=== PATIENT | female | born 1960 | race Caucasian/White ===

== ENCOUNTER → 2016-08-05 | Outpatient (CLI) | payer MEDICARE ==
[~2016-08-05] MED LIST: ALPR-229 PO; DULO60CA PO; GABA-339 PO; OXY20CRT PO; QUET400T PO
[2016-08-05 11:03] LABS: Cholesterol 326 mg/dL (<200); HDL Cholesterol 92 mg/dL (40-59); LDL Cholesterol 204 mg/dL (<100); Triglycerides 214 mg/dL (<150)
== END | disposition home or self-care (01) ==
LOC: LAB 10:05
PROVIDERS: ATTEND Internal Medicine
DX: Z00.00 Encounter for general adult medical examination without abnormal findings (principal); E55.9 Vitamin D deficiency, unspecified
CPT/HCPCS: 36415; 80061; 82306; 84443

== ENCOUNTER 2022-03-01 13:40 | Emergency (ER) | payer MEDICARE ==
[~2022-03-01] VITALS: Ht 172.7 cm; Wt 79.5 kg
[~2022-03-01 13:40] MED LIST changes: -ALPR-229 PO; +ALPR2TAB6 PO
[2022-03-01 14:00] VITALS: BP 155/83
[2022-03-01 14:30] LABS: Basophils # (auto) 0 10 ^3/uL (0-0.2); Basophils % (auto) 0.6 % (0.0-2.0); Eosinophils # (auto) 0 10 ^3/uL (0-0.8); Eosinophils % (auto) 0.5 % (0.0-7.0); Hematocrit 35.4 % (36.0-46.0); Hemoglobin 11.2 g/dL (12.2-16.2); Lymphocytes # (auto) 1.2 10 ^3/uL (0.4-5.4); Lymphocytes % (auto) 20.6 % (10.0-50.0); Mean Corpuscular Hemoglobin 27.1 pg (28.0-32.0); Mean Corpuscular Hgb Conc. 31.8 g/dL (32.0-36.0); Mean Corpuscular Volume 85.4 fL (80.0-100.0); Monocytes # (auto) 0.3 10 ^3/uL (0-1.3); Monocytes % (auto) 5.7 % (0.0-12.0); Neutrophils # (auto) 4.3 10 ^3/uL (1.6-8.6); Neutrophils % (auto) 72.6 % (37.0-80.0); Red Blood Cells 4.14 10^6/uL (4.0-5.20); Red Cell Distribution Width 13.5 % (11.8-14.3); White Blood Cell 5.9 10^3/uL (4.4-10.8)
[2022-03-01 14:44] LABS: Albumin 3.4 g/dL (3.4-5.0); Magnesium 2.2 mg/dL (1.6-2.6); Potassium 3.4 mmol/L (3.5-5.1)
[2022-03-01 14:48] LABS: BUN/Creatinine Ratio 10.9; Bilirubin, Total 0.7 mg/dL (0.2-1.0)
[2022-03-01 14:54] LABS: INR 0.94 (0.9-1.15); Partial Thromboplastin Time 27.1 sec (24.6-33.4)
== END 2022-03-01 16:55 | disposition left against medical advice (07) ==
LOC: ER 13:40
DX: R07.9 Chest pain, unspecified (principal); Z53.21 Procedure and treatment not carried out due to patient leaving prior to being seen by health care provider
CPT/HCPCS: 36415; 80053; 83735; 83880; 84443; 84484; 85025; 85379; 85610; 85730

== ENCOUNTER 2024-07-11 08:54 | Inpatient (IN) | payer MEDICARE ==
[~2024-07-11] VITALS: Ht 170.2 cm; Wt 92.0 kg
[~2024-07-11 08:54] MED LIST changes: -DULO60CA PO; +DULO60CA41 PO
[2024-07-11 09:41] VITALS: RESP 22; O2SAT 99
--- NOTE | 2024-07-11 09:42 | ED.PDOC ---
History of Present Illness HPI Comments 63 y/o F, with a Hx of COPD w/3LPM home O2 use and former tobacco use, presents with c/o shortness of breath, productive cough, congestion, and chest pain, today. Patient endorses on noticing her SpO2 in the 70's in addition to having chest pain whenever she coughs or deeply inhales or exhales, this morning. She reports no recent sick contact, travel, or any additional relevant or pertinent Hx. She denies having any palpitations, hemoptysis, dizziness, fever, chills, nausea, vomiting, or other associated symptoms or modifiers at this time. Chief Complaint: Shortness of Breath Time Seen by MD: 09:05 Primary Care Provider: MAYRA Camarena Notes: Nurses Notes, Medications, Allergies Allergies: Coded Allergies: Penicillins (Verified Allergy, Unknown, 03/01/22) Home Meds Reported Medications Quetiapine Fumerate (Seroquel) 400 Mg Tab, 400 MG PO HS, TAB 12/28/15 Duloxetine Hcl (Cymbalta) 60 Mg Cap, 60 MG PO DAILY, CAP 12/28/15 Gabapentin (Gabapentin) 600 Mg Tab, 600 MG PO TID, TAB 12/28/15 Oxycodone Hcl (OxyCONTIN ER Tablet) 20 Mg Tb, 30 MG PO BID for 30 Days 12/28/15 Alprazolam (Alprazolam) 2 Mg Tab, 2 MG PO TID, TAB 12/28/15 Information Source: Patient Mode of Arrival: Ambulatory Severity: Moderate Timing: Hours Duration: Since onset Prehospital treatment: None Past Medical History PAST MEDICAL HISTORY: COPD (w/home O2), Thyroid Surgical History: Appendectomy, , Hysterectomy Surgical History (Other): breast augementation DRAPERY WORKER History: No Pertinent DRAPERY WORKER History Family History Family History: Unobtainable Social History Smoker: Quit Greater Than 1 Year, Cigarettes Alcohol: Denies ETOH Use Drugs: Marijuana Lives In: Home EENTM: reports: others (congestion ) Respiratory: reports: cough, shortness of breath Cardiovascular: reports: chest pain All Other Systems: Reviewed and Negative (negative unless otherwise stated above or in HPI) Physical Exam General Appearance: Moderate Distress HEENT: Normal ENT Inspection, Pharynx Normal, TMs Normal Neck: Full Range of Motion, Non-Tender, Normal, Normal Inspection Respiratory: Respiratory Distress, Wheezing Cardiovascular: Tachycardia Breast Exam: Deferred Gastrointestinal: No Organomegaly, Non Tender, No Pulsatile Mass, Normal Bowel Sounds, Soft Genitalia: Deferred Pelvic: Deferred Rectal: Deferred Extremities: No calf tenderness, Normal capillary refill, Normal inspection, Normal range of motion, Non-tender, No pedal edema Musculoskeletal : Apperance: Normal Neurologic: Alert Cerebellar Function: NOT DONE Reflexes: NOT DONE Skin: Dry, Normal Color, Warm Peripheral Pulses: 3+ Radial (R), 3+ Radial (L) Lymphatic: No Adenopathy Was a procedure done? Was a procedure done?: No Differential Dx Considerations may include: COPD exacerbation, PNA, URI, viral syndrome, covid19, ME, PE X-Ray, Labs, Meds, VS Vital Signs Date Time Temp Pulse Resp B/P (MAP) Pulse Ox O2 Delivery O2 Flow Rate FiO2 07/11/24 09:48 18 96 Nasal Cannula* 3 32 07/11/24 09:41 22 99 Nasal Cannula* 3 32 07/11/24 09:01 97 07/11/24 09:00 100.7 108 28 185/78 (113) 92 Lab Test 07/11/24 09:48 Range/Units White Blood Count 5.9 4.4-10.8 10^3/uL Red Blood Count 4.12 4.0-5.20 10^6/uL Hemoglobin 11.4 L 12.2-16.2 g/dL Hematocrit 35.5 L 36.0-46.0 % Mean Corpuscular Volume 86.2 80.0-100.0 fL Mean Corpuscular Hemoglobin 27.8 L 28.0-32.0 pg Mean Corpuscular Hemoglobin Concent 32.2 32.0-36.0 g/dL Red Cell Distribution Width 15.5 H 11.8-14.3 % Platelet Count 228 140-450 10^3/uL Mean Platelet Volume 7.1 6.9-10.8 fL Neutrophils (%) (Auto) 73.8 37.0-80.0 % Lymphocytes (%) (Auto) 12.7 10.0-50.0 % Monocytes (%) (Auto) 11.7 0.0-12.0 % Eosinophils (%) (Auto) 1.5 0.0-7.0 % Basophils (%) (Auto) 0.3 0.0-2.0 % Neutrophils # (Auto) 4.4 1.6-8.6 10 ^3/uL Lymphocytes # (Auto) 0.7 0.4-5.4 10 ^3/uL Monocytes # (Auto) 0.7 0-1.3 10 ^3/uL Eosinophils # (Auto) 0.1 0-0.8 10 ^3/uL Basophils # (Auto) 0 0-0.2 10 ^3/uL Nucleated Red Blood Cells 0.1 % Sodium Level 138 136-145 mmol/L Potassium Level 4.0 3.5-5.1 mmol/L Chloride Level 105 98-107 mmol/L Carbon Dioxide Level 27 20-31 mmol/L Anion Gap 6 5-15 Blood Urea Nitrogen 11 9-23 mg/dL Creatinine 0.93 0.550-1.02 mg/dL Glomerular Filtration Rate Calc 69 >90 mL/min BUN/Creatinine Ratio 11.8 10.0-20.0 Serum Glucose 104 74-106 mg/dL Calcium Level 9.4 8.7-10.4 mg/dL Troponin I High Sensitivity < 3 L </=34 ng/L Current Medications Medications (Trade) Dose Ordered Sig/Ashley Route Start Time Stop Time Status Last Admin Methylprednisolone Sodium Succinate (Solu Medrol) 125 mg ONCE ONCE IV 07/11/24 09:30 07/11/24 09:31 DC 07/11/24 09:46 Albuterol (Ventolin Medneb) 5 mg ONCE ONCE NEB 07/11/24 09:30 12 09:31 DC 07/11/24 09:48 Ipratropium [place] (Atrovent Medneb) 0.5 mg ONCE ONCE NEB 07/11/24 09:30 07/11/24 09:31 DC 07/11/24 09:47 Acetaminophen (Tylenol Tablet) 650 mg ONCE ONCE PO 07/11/24 09:45 07/11/24 09:46 DC 07/11/24 09:47 Patient alert. Complaining of shortness breath. Currently on oxygen. Had to increase the oxygen content. Blood pressure elevated. Mild fever. Establish intravenous access. Was given steroid. Was given breathing treatment. Reviewed her previous visit. Explained to the patient. Continue cardiac monitoring. [address] [address] Ph: [phone] DIAGNOSTIC IMAGING Diagnostic Imaging Report : [id number] Signed PATIENT: LIZETH ESCOBAR ACCT: [id number] UNIT: [id number] : 1960 LOC: ER ROOM / BED: / AGE / SEX: 63 / F ADM STATUS: REG ER SERVICE 5 ORDERING PHYSICIAN: LETY REED MD PROCEDURE(s): CXRP - CHEST PORTABLE REASON: sob ORDER NUMBER(s): [id number], ACCESSION NUMBER(s): [id number] XY CHEST PORTABLE, HISTORY: sob COMPARISON: None None TECHNICAL DATA: 1 view of the chest was obtained. FINDINGS: Lines and tubes: A spinal stimulator is seen. Cardiomediastinal silhouette: normal Pulmonary vasculature: normal Lung expansion: normal Lung airspace: normal Lung interstitium: normal Pleura: normal Pneumothorax: no Bones: Unremarkable Other: no IMPRESSION: No acute intrathoracic abnormality. ATED BY: SULEIMAN BROWN MD DICTATED DATE/TIME: 07/11/24945 SIGNED BY: SULEIMAN BROWN MD SIGNED DATE/TIME: 07/11/24945 CC: Time of 1ST Reevaluation: 09:35 Reevaluation 1ST: Unchanged Patient Education/Counseling: Diagnosis, Treatment Family Education/Counseling: No Family Present Additional Information I reviewed the following notes from patient's past medical encounters: 03/01/22 The following tests were ordered, and results were reviewed by me: BMP, CBC, TROPONIN, UA, CXR I reviewed and agreed with the following test results read by other providers: CXR I discussed treatment and results with medical personnel Departure 1 Departure Time of Disposition: 09:46 Impression: Primary Impression: Acute respiratory failure Qualified Codes: J96.01 - Acute respiratory failure with hypoxia Additional Impression: COPD exacerbation Disposition: ADMITTED INPATIENT Admit to: Med Surg Condition: Guarded Critical Care Note Critical Care Time?: Yes (90 min-critical care time only) Stability Stability form required: No Heart Score Heart Score: Heart Score Response (Comments) Value History Moderate Suspicious 1 EKG Normal 0 Age 45-64 1 Risk Factors 1 or 2 risk factors 1 Troponin Normal limit 0 Total 3 I personally scribed for LETY REED MD ([email or web address]) on 07/11/24 at 09:42. Electronically submitted by Alex Allen ([email or web address]). I personally scribed for LETY REED MD ([email or web address]) on 07/11/24 at 09:53. Electronically submitted by Alex Allen [email or web address]). LETY REED MD Jul 11, 2024 09:42
[2024-07-11] MEDS: methylPREDNISolone SOD SUCC 125 MG/2 ML VL IV ONE (09:46)
[2024-07-11] MEDS: IPRATROPIUM BROM 0.5 MG/2.5ML INH SOL NEB ONE (09:47)
[2024-07-11] MEDS: ACETAMINOPHEN 325 MG TAB PO ONE (09:47)
[2024-07-11] MEDS: ALBUTEROL SULF 2.5 MG/0.5ML(0.5%) NEB SOLN NEB ONE (09:48)
--- NOTE | 2024-07-11 09:48 | DVH ---
XY CHEST PORTABLE, HISTORY: sob COMPARISON: None None TECHNICAL DATA: 1 view of the chest was obtained. FINDINGS: Lines and tubes: A spinal stimulator is seen. Cardiomediastinal silhouette: normal Pulmonary vasculature: normal Lung expansion: normal Lung airspace: normal Lung interstitium: normal Pleura: normal Pneumothorax: no Bones: Unremarkable Other: no IMPRESSION: No acute intrathoracic abnormality.
[2024-07-11 10:09] LABS: Basophils # (auto) 0 10 ^3/uL (0-0.2); Basophils % (auto) 0.3 % (0.0-2.0); Chloride 105 mmol/L (98-107); Eosinophils # (auto) 0.1 10 ^3/uL (0-0.8); Eosinophils % (auto) 1.5 % (0.0-7.0); Hematocrit 35.5 % (36.0-46.0); Hemoglobin 11.4 g/dL (12.2-16.2); Lymphocytes # (auto) 0.7 10 ^3/uL (0.4-5.4); Lymphocytes % (auto) 12.7 % (10.0-50.0); Mean Corpuscular Hemoglobin 27.8 pg (28.0-32.0); Mean Corpuscular Hgb Conc. 32.2 g/dL (32.0-36.0); Mean Corpuscular Volume 86.2 fL (80.0-100.0); Monocytes # (auto) 0.7 10 ^3/uL (0-1.3); Monocytes % (auto) 11.7 % (0.0-12.0); Neutrophils # (auto) 4.4 10 ^3/uL (1.6-8.6); Neutrophils % (auto) 73.8 % (37.0-80.0); Nucleated Red Blood Cells % 0.1 %; Platelet Count (auto) 228 10^3/uL (140-450); Red Blood Cells 4.12 10^6/uL (4.0-5.20); Red Cell Distribution Width 15.5 % (11.8-14.3); Sodium 138 mmol/L (136-145); White Blood Cell 5.9 10^3/uL (4.4-10.8)
[2024-07-11 10:10] LABS: Anion Gap 6 (5-15); Calcium 9.4 mg/dL (8.7-10.4); Carbon Dioxide 27 mmol/L (20-31)
[2024-07-11 10:15] LABS: BUN/Creatinine Ratio 11.8 (10.0-20.0); Blood Urea Nitrogen 11 mg/dL (9-23); Glucose 104 mg/dL (74-106)
[2024-07-11] MEDS ORDERED: ONDANSETRON HCL 4 MG/2 ML VIAL IV PRN (13:00)
[2024-07-11] MEDS ORDERED: IPRATROPIUM BROM 0.5 MG/2.5ML INH SOL NEB PRN (13:00)
[2024-07-11] MEDS ORDERED: DOCUSATE SOD 100 MG CAP PO PRN (13:00)
[2024-07-11] MEDS ORDERED: ALBUTEROL SULF 2.5 MG/0.5ML(0.5%) NEB SOLN NEB PRN (13:00)
[2024-07-11] MEDS ORDERED: ACETAMINOPHEN 325 MG TAB PO PRN (13:00)
[2024-07-11] MEDS: SODIUM CHLORIDE 0.9% 1,000 ML IV SCH (13:00)
[2024-07-11 13:21] VITALS: BP 185/78; PULSE 100; RESP 20; TEMP 100.7; O2SAT 97
--- NOTE | 2024-07-11 13:36 | DVHHP2 ---
History of Present Illness Reason for Visit: COPD with acute exacerbation History of Present Illness The patient is a 63-year-old female with past medical history of COPD and thyroid disease presented to [facility] ED with complaint of shortness of breaths. Patient reports symptoms progressively get worse with cou gh, congestion chest pain, hypoxia with O2 saturation in the 70s, getting worse that prompted this visit. Patient was seen and evaluated in the ED, laboratory data shows WBC 5.9, platelets 228, sodium 138, potassium 4.0, BUN 11, creatinine 0.93, GFR 69, glucose 104, troponin 3, temperature 185/78, heart rate 76, temperature 100.7 F, O2 saturation 96% oxygen. Patient was started on IV Solu- Medrol, given breathing treatment, please see medication orders section in the computer. On my assessment, patient denied chest pain, no headache, no dizziness, no diaphoresis, currently on oxygen, diarrhea, no nausea, no vomiting, no fever, no chills. Patient was admitted for further evaluation and medical management. Past Medical History COPD (w/home O2), Thyroid Past Surgical History Appendectomy, , Hysterectomy, Breast augmentation Family History Reviewed, noncontributory to the management of this case. Past Social History The patient lives at home, quit smoking greater than 1 year, denies alcohol, uses marijuana. Review of Systems Constitutional: Yes: Weakness; No: Fever, Chills, Sweats, Malaise, Other Eyes: No: Pain, Vision change, Conjunctivae inflammation, Eyelid inflammation, Other, Redness ENT: Nose congestion; No: Ear pain, Ear discharge, Nose pain, Nose discharge, Mouth pain, Mouth swelling, Throat pain, Throat swelling, Other Respiratory: Cough, Shortness of breath, SOB with excertion, Other (SOB at rest); No: Dry, Wheezing, Hemoptysis, Pleuritic Pain, Sputum, Wheezing Cardiovascular: Chest Pain; No: Palpitations, Orthopnea, Paroxysmal Noc. Dyspnea, Edema, Lt Headedness, Other Gastrointestinal: No: Nausea, Vomiting, Abdominal Pain, Diarrhea, Constipation, Melena, Hematochezia, Other Genitourinary: No Dysuria, No Frequency, No Incontinence, No Hematuria, No Retention, No Other Musculoskeletal: No: other, neck pain, shoulder pain, arm pain, back pain, hand pain, leg pain, foot pain Skin: No: Rash, Lesions, Jaundice, Bruising, Other Neurological: No: Weakness, Numbness, Incoordination, Change in speech, Confusion, Seizures, Other Allergies: Coded Allergies: Penicillins (Verified Allergy, Unknown, 03/01/22) Medications Current Medications Medications Dose Ordered Sig/Ashley Route Start Time Stop Time Status Last Admin Dose Admin Albuterol 2.5 mg Q4HPRN PRN NEB 07/11/24 13:00 Ipratropium [place] 0.5 mg Q4HPRN PRN NEB 07/11/24 13:00 Methylprednisolone Sodium Succinate 40 mg Q8HR IV 07/11/24 14:00 Famotidine 20 mg Q12HR IV 07/11/24 22:00 Sodium Chloride 1,000 ml @ 60 mls/hr [id number] IV 07/11/24 13:00 Acetaminophen/ Hydrocodone Bitart 1 tab Q4HP PRN PO 07/11/24 13:00 Ondansetron HCl 4 mg Q4HP PRN IV 07/11/24 13:00 Docusate Sodium 100 mg BIDPRN PRN PO 07/11/24 13:00 Acetaminophen 650 mg Q6HP PRN PO 07/11/24 13:00 Exam Vital Signs Vital Signs Date Time Temp Pulse Resp B/P (MAP) Pulse Ox O2 Delivery O2 Flow Rate FiO2 07/11/24 13:21 100.7 100 20 185/78 97 3.0 32 100.7 07/11/24 09:48 Nasal Cannula* General Appearance: Alert, Oriented X3, Cooperative, No acute distress HEENT: Atraumatic, PERRLA, EOMI, Mucous membr. moist/pink Respiratory: Normal air movement, Other (Wheezing) Cardiovascular: Regular rate, Normal S1, Normal S2, No murmurs Abdominal: Normal bowel sounds, Soft, No tenderness, No hepatospenomegaly, No masses Extremities: No clubbing, No cyanosis, No edema, Normal pulses, No tenderness/swelling Skin: No rashes, No breakdown, No significant lesion Neuro: Normal speech, Normal tone, Sensation intact, Cranial nerves 3-12 NL, Reflexes 2+, Other (Generalized weakness) Psych/Mental Status: Mental status NL, Mood NL Labs/Xrays Labs Test 07/11/24 09:48 Range/Units White Blood Count 5.9 4.4-10.8 10^3/uL Red Blood Count 4.12 4.0-5.20 10^6/uL Hemoglobin 11.4 L 12.2-16.2 g/dL Hematocrit 35.5 L 36.0-46.0 % Mean Corpuscular Volume 86.2 80.0-100.0 fL Mean Corpuscular Hemoglobin 27.8 L 28.0-32.0 pg Mean Corpuscular Hemoglobin Concent 32.2 32.0-36.0 g/dL Red Cell Distribution Width 15.5 H 11.8-14.3 % Platelet Count 228 140-450 10^3/uL Mean Platelet Volume 7.1 6.9-10.8 fL Neutrophils (%) (Auto) 73.8 37.0-80.0 % Lymphocytes (%) (Auto) 12.7 10.0-50.0 % Monocytes (%) (Auto) 11.7 0.0-12.0 % Eosinophils (%) (Auto) 1.5 0.0-7.0 % Basophils (%) (Auto) 0.3 0.0-2.0 % Neutrophils # (Auto) 4.4 1.6-8.6 10 ^3/uL Lymphocytes # (Auto) 0.7 0.4-5.4 10 ^3/uL Monocytes # (Auto) 0.7 0-1.3 10 ^3/uL Eosinophils # (Auto) 0.1 0-0.8 10 ^3/uL Basophils # (Auto) 0 0-0.2 10 ^3/uL Nucleated Red Blood Cells 0.1 % Sodium Level 138 136-145 mmol/L Potassium Level 4.0 3.5-5.1 mmol/L Chloride Level 105 98-107 mmol/L Carbon Dioxide Level 27 20-31 mmol/L Anion Gap 6 5-15 Blood Urea Nitrogen 11 9-23 mg/dL Creatinine 0.93 0.550-1.02 mg/dL Glomerular Filtration Rate Calc 69 >90 mL/min BUN/Creatinine Ratio 11.8 10.0-20.0 Serum Glucose 104 74-106 mg/dL Calcium Level 9.4 8.7-10.4 mg/dL Troponin I High Sensitivity < 3 L </=34 ng/L PATIENT: LIZETH ESCOBAR ACCT: [id number] UNIT: [id number] : 1960 LOC: ER ROOM / BED: / AGE / SEX: 63 / F ADM STATUS: REG ER SERVICE 5 ORDERING PHYSICIAN: LETY REED MD PROCEDURE(s): CXRP - CHEST PORTABLE REASON: sob ORDER NUMBER(s): [id number], ACCESSION NUMBER(s): [id number] XY CHEST PORTABLE, HISTORY: sob COMPARISON: None None TECHNICAL DATA: 1 view of the chest was obtained. FINDINGS: Lines and tubes: A spinal stimulator is seen. Cardiomediastinal silhouette: normal Pulmonary vasculature: normal Lung expansion: normal Lung airspace: normal Lung interstitium: normal Pleura: normal Pneumothorax: no Bones: Unremarkable Other: no IMPRESSION: No acute intrathoracic abnormality. Assessment/Plan Assessment/Plan Acute respiratory failure COPD with acute exacerbation Acute respiratory failure with hypoxia Plan 1. Admit to telemetry unit 2. Breathing treatment 3. Pain control management 4. Management of fluids and electrolytes 5. Consultation for pulmonology 6. Diagnostic tests chest x-ray 7. DVT prophylaxis on aspirin 8. Repeat labs CBC, CMP in a.m. 9. Continue with current medical management 10. Treatment plan discussed with patient and RN. Patient verbalized understanding. Plan discussed with: Patient, Other (RN) My Orders Orders - HARJINDER MONTESINOS DNP Procedure Category Date Status Time Albuterol Medneb PHA 07/11/24 In Process (Ventolin Medneb) 13:00 Ipratropium Medneb PHA 07/11/24 In Process (Atrovent Medneb) 13:00 Methylprednisolone PHA 07/11/24 In Process Sod Succ (Solu Medrol 14:00 Famotidine Injection PHA 07/11/24 In Process (Pepcid Injection) 22:00 *Consult CONS 07/11/24 Transmitted / 12:58 Allergies DARVIN 07/11/24 In Process 12:58 Code Status CODE 07/11/24 Transmitted 12:58 Sodium Chloride 0.9% PHA 07/11/24 In Process 13:00 Oxygen Per Hour RT 07/11/24 Transmitted 12:58 Hydrocodone-Acet PHA 07/11/24 In Process 5/325mg Tab ([place] 13:00 Ondansetron Hcl PHA 07/11/24 In Process (Zofran) 13:00 Docusate Sodium PHA 07/11/24 In Process Capsule (Colace 13:00 Complete Blood Count LAB 07/12/24 Verified 04:00 Comprehensive LAB 07/12/24 Verified Metabolic Panel 04:00 Cardiac DIET 07/11/24 Transmitted Diet-2gna,Lofat,Lochol Lunch Condition: Serious DARVIN 07/11/24 In Process 12:58 Acetaminophen Tablet PHA 07/11/24 In Process (Tylenol Tablet) 13:00 Bedrest With Bathroom DARVIN 07/11/24 In Process Privileg 12:58 Sequential DARVIN 07/11/24 In Process Compression Device Problem List: (1) Acute respiratory failure (2) COPD with acute exacerbation (3) Acute respiratory failure with hypoxia Date of Service: Jul 11, 2024 Billing Provider: HARJINDER MONTESINOS DNP Common Visit Codes: [id number] INP/OBS CARE (HIGH) HARJINDER MONTESINOS DNP Jul 11, 2024 13:36
[2024-07-11] MEDS ORDERED: NITROGLYCERIN 0.4 MG SL TAB SL PRN (13:45)
[2024-07-11] MEDS ORDERED: MORPHINE SULFATE INJ 2 MG/ml SYRG IV PRN (13:45)
[2024-07-11 15:22] LABS: Urine Bacteria None Seen /hpf (None Seen)
[2024-07-11 15:43] LABS: Urine Blood TRACE /uL (Negative); Urine Clarity Clear (Clear); Urine Color Yellow (Yellow); Urine Protein, UAD TRACE (Negative); Urine Urobilinogen Normal (Negative); Urine WBC 1 /hpf (0 - 5); Urine pH 6.5 (5.0-9.0)
[2024-07-11] MEDS: methylPREDNISolone SOD SUCC 40 MG/ML VL IV SCH (16:10)
[2024-07-11 17:19] VITALS: BP 135/73; PULSE 96; RESP 20; TEMP 99.5; O2SAT 92
[2024-07-11] MEDS: HYDROcodone-ACET 5/325MG TAB PO PRN (17:26)
[2024-07-11 18:50] VITALS: O2SAT 92
[2024-07-11] MEDS ORDERED: FAMOTIDINE (10MG/ML) 2ML VL IV SCH (22:00)
--- NOTE | 2024-07-11 23:54 | DVHINCON2 ---
Date of service: Jul 11, 2024 Referring Physician Quintin Manzanares NP Reason for Consultation Acute on chronic hypoxic respiratory failure and COPD exacerbation History of Present Illness The patient is a 63-year-old woman with past medical history of COPD and thyroid disease who presented to ED today c/o shortness of breath. Reports symptoms progressively worsened with cough, congestion, chest pain, and hypoxia with O2 saturation in the 70s, prompting this visit. ED workup notable for WBC 5.9, platelets 228, sodium 138, potassium 4.0, BUN 11, creatinine 0.93, GFR 69, glucose 104, troponin 3. BP 185/78, heart rate 76, temperature 100.7 F, O2 saturation was 96% on oxygen. Patient was admitted for further care and pulmonary consultation is requested for evaluation and management of acute on chronic hypoxic respiratory failure and COPD exacerbation. Review of Systems: 14-point review of systems negative unless otherwise noted above. Past Medical History: COPD (on home O2), Thyroid disease Past Surgical History: Appendectomy, , Hysterectomy, Breast augmentation Medications: Reviewed. Allergies: Penicillins. Family History: No family history of premature CAD. No family history of lung disorders. Social History: Ex-smoker; quit smoking greater than 1 year. Denies alcohol use. Patient uses marijuana. Family History: Patient reports no known family medical history. Allergies: Coded Allergies: Penicillins (Verified Allergy, Unknown, 03/01/22) Home Meds Reported Medications Quetiapine Fumerate (Seroquel) 400 Mg Tab, 400 MG PO HS, TAB 12/28/15 Duloxetine Hcl (Cymbalta) 60 Mg Cap, 60 MG PO DAILY, CAP 12/28/15 Gabapentin (Gabapentin) 600 Mg Tab, 600 MG PO TID, TAB 12/28/15 Oxycodone Hcl (OxyCONTIN ER Tablet) 20 Mg Tb, 30 MG PO BID for 30 Days 12/28/15 Alprazolam (Alprazolam) 2 Mg Tab, 2 MG PO TID, TAB 12/28/15 Current Medications Current Medications Medications (Trade) Dose Ordered Sig/Ashley Route PRN Reason Start Time Stop Time Status Last Admin Albuterol (Ventolin Medneb) 2.5 mg Q4HPRN PRN NEB SHORTNESS OF BREATH 07/11/24 13:00 07/11/24 19:41 DC Ipratropium [place] (Atrovent Medneb) 0.5 mg Q4HPRN PRN NEB SHORTNESS OF BREATH 07/11/24 13:00 07/11/24 19:41 DC Methylprednisolone Sodium Succinate (Solu Medrol) 40 mg Q8HR IV 07/11/24 14:00 07/11/24 19:41 DC 07/11/24 16:10 Famotidine (Pepcid Injection) 20 mg Q12HR IV 07/11/24 22:00 07/11/24 19:41 DC Sodium Chloride 1,000 ml @ 60 mls/hr [id number] IV 07/11/24 13:00 07/11/24 19:41 DC Acetaminophen/ Hydrocodone Bitart ([place] 5/325MG Tab) 1 tab Q4HP PRN PO MODERATE PAIN (4-6 PAIN SCALE) 07/11/24 13:00 07/11/24 19:41 DC 07/11/24 17:26 Ondansetron HCl (Zofran) 4 mg Q4HP PRN IV NAUSEA / VOMITING 07/11/24 13:00 07/11/24 19:41 DC Docusate Sodium (Colace Capsule) 100 mg BIDPRN PRN PO FOR CONSTIPATION 07/11/24 13:00 07/11/24 19:41 DC Acetaminophen (Tylenol Tablet) 650 mg Q6HP PRN PO PAIN SCALE 1-3 OR TEMP>100.4 07/11/24 13:00 07/11/24 19:41 DC Nitroglycerin (Ntrostat Sublingual) 0.4 mg Q5MINP PRN SL FOR CHEST PAIN 07/11/24 13:45 07/11/24 19:41 DC Morphine Sulfate 2 mg Q30M PRN IV FOR CHEST PAIN 07/11/24 13:45 07/11/24 19:41 DC Vital Signs Vital Signs Date Time Temp Pulse Resp B/P (MAP) Pulse Ox O2 Delivery O2 Flow Rate FiO2 07/11/24 18:50 92 Room Air* 0 21 07/11/24 17:19 99.5 96 20 135/73 (93) 99.5 Physical Exam Gen.: Patient lying in bed in no apparent distress. On supplemental oxygen. Head: Normocephalic, atraumatic. Eyes: EOMI/PERRLA. Ears: Normal hearing. Normal anatomy. Neck/trachea: Trachea midline, supple. Nose: Normal external anatomy. Mouth: Moist mucous membranes. Chest: Decreased air entry bilaterally. No wheezing or rhonchi. Cardiovascular: Positive S1, positive S2. Regular rate and rhythm. Abdomen: Positive bowel sounds in all 4 quadrants. Soft, non-tender, non- distended. : Deferred. Rectal: Deferred. Skin: Warm, dry. Intact. Extremities: 2+ radial pulses bilaterally. No lower extremity edema. Neuro: Awake, alert, oriented x3. No gross motor or sensory deficits. Cranial nerves II through XII intact. Gait not assessed. Labs/Diagnostic Data Labs Test 07/11/24 09:48 07/11/24 09:38 Range/Units White Blood Count 5.9 4.4-10.8 10^3/uL Red Blood Count 4.12 4.0-5.20 10^6/uL Hemoglobin 11.4 L 12.2-16.2 g/dL Hematocrit 35.5 L 36.0-46.0 % Mean Corpuscular Volume 86.2 80.0-100.0 fL Mean Corpuscular Hemoglobin 27.8 L 28.0-32.0 pg Mean Corpuscular Hemoglobin Concent 32.2 32.0-36.0 g/dL Red Cell Distribution Width 15.5 H 11.8-14.3 % Platelet Count 228 140-450 10^3/uL Mean Platelet Volume 7.1 6.9-10.8 fL Neutrophils (%) (Auto) 73.8 37.0-80.0 % Lymphocytes (%) (Auto) 12.7 10.0-50.0 % Monocytes (%) (Auto) 11.7 0.0-12.0 % Eosinophils (%) (Auto) 1.5 0.0-7.0 % Basophils (%) (Auto) 0.3 0.0-2.0 % Neutrophils # (Auto) 4.4 1.6-8.6 10 ^3/uL Lymphocytes # (Auto) 0.7 0.4-5.4 10 ^3/uL Monocytes # (Auto) 0.7 0-1.3 10 ^3/uL Eosinophils # (Auto) 0.1 0-0.8 10 ^3/uL Basophils # (Auto) 0 0-0.2 10 ^3/uL Nucleated Red Blood Cells 0.1 % Sodium Level 138 136-145 mmol/L Potassium Level 4.0 3.5-5.1 mmol/L Chloride Level 105 98-107 mmol/L Carbon Dioxide Level 27 20-31 mmol/L Anion Gap 6 5-15 Blood Urea Nitrogen 11 9-23 mg/dL Creatinine 0.93 0.550-1.02 mg/dL Glomerular Filtration Rate Calc 69 >90 mL/min BUN/Creatinine Ratio 11.8 10.0-20.0 Serum Glucose 104 74-106 mg/dL Calcium Level 9.4 8.7-10.4 mg/dL Troponin I High Sensitivity < 3 L </=34 ng/L Urine Color Yellow Yellow Urine Clarity Clear Clear Urine pH 6.5 5.0-9.0 Urine Specific [place] 1.020 1.001-1.035 Urine Protein Trace H Negative Urine Ketones Negative Negative Urine Blood Trace H Negative /uL Urine Nitrite Negative Negative Urine Bilirubin Negative Negative Urine Urobilinogen Normal Negative mg/dL Urine Leukocyte Esterase Negative Negative /uL Urine RBC 9 0 - 4 /hpf Urine WBC 1 0 - 5 /hpf Urine Squamous Epithelial Cells Few <5 /hpf Urine Bacteria None seen None Seen /hpf Urine Glucose Normal Normal mg/dL Assessment Impression: Acute on chronic hypoxic respiratory failure Dependence on supplemental oxygen AE COPD Hx of nicotine dependence Marijuana use Plan: Supplemental oxygen Titrate to keep O2 sats above 92%. CXR reviewed; demonstrates no acute opacities, pleural effusion or pneumothorax. Continue bronchodilators. Steroids Continue antibiotics Incentive spirometry Monitor renal function. Monitor electrolytes. Supplement as necessary. Monitor ins and outs. DVT prophylaxis. Prognosis: Poor given patient's multiple co-morbidities. Rest of plan per hospitalist and other consultants. Thank you, Quintin Manzanares NP, for allowing me to participate in this patient's care. Further recommendations will depend on the patient's clinical course. Please do not hesitate to contact me if you have any questions or concerns. This medical document was created using an electronic medical record system with [employer] system. Although these documentations are being carefully reviewed, there may still be some phonetic and typographical changes. The errors are purely typographical, due to imperfection on the software program, and do not reflect any compromise in the patient's medical care. Plan discussed with: Patient, Other (RN/DASIA Manzanares/) JUANITO ACEVEDO MD Jul 11, 2024 23:54
== END 2024-07-11 19:40 | disposition left against medical advice (07) | DRG 189 ==
LOC: ER 08:54 → TELE 13:35
PROVIDERS: ADMIT Nurse Practitioner Family; ATTEND Nurse Practitioner Family
DX: J96.01 Acute respiratory failure with hypoxia (principal); J44.1 Chronic obstructive pulmonary disease with (acute) exacerbation; Z53.29 Procedure and treatment not carried out because of patient's decision for other reasons; Z88.0 Allergy status to penicillin; Z87.891 Personal history of nicotine dependence; Z90.710 Acquired absence of both cervix and uterus; Z79.899 Other long term (current) drug therapy
CPT/HCPCS: 36415; 71045; 80048; 81001; 84484; 85025; 94640; 99291; 99292; G0378